=== PATIENT | male | born 1960 | race Hispanic/Latino ===

== ENCOUNTER 2021-03-15 09:17 | Emergency (ER) | payer SELFPAY ==
--- OUTSIDE RECORDS SUMMARY | 2021-03-15 09:19 | XMS REPORT | Continuity of Care Document ---
:1960 Author Organization [facility] t Address [address] [place] [address] Care Team Providers Name Role Phone JET ABDULLAHI Attending Clinician Unavailable JET ABDULLAHI Admitting Clinician Unavailable Problems This patient has no known problems. Allergies, Adverse Reactions, Alerts This patient has no known allergies or adverse reactions. Medications This patient has no known medications. Procedures This patient has no known procedures. Results Test Description Test Time Test Comments Results Result Comments Source Comprehensive Metabolic Panel 2017-01-29 23:55:00 Test Item Value Reference Range Interpretation Comme nts Sodium (test code = NA) 138 mmol/L 135-145 N Potassium (test code = K) 4.5 mmol/L 3.5-5.1 N Chloride (test code = CL) 102 mmol/L 98-105 N Carbon Dioxide (test code = 25 mmol/L 22-29 N CO2) Glucose (test code = GLU) 114 mg/dL 70-115 N Blood Urea Nitrogen (test 16 mg/dL 6-20 N code = BUN) Creatinine (test code = 1.0 mg/dL 0.7-1.2 N CREAT) Calcium (test code = CA) 9.5 mg/dL 8.3-10.5 N Prot Total (test code = TP) 7.0 g/dL 6.4-8.3 N Albumin (test code = ALB) 4.5 g/dL 3.5-5.2 N A/G Ratio (test code = 1.8 Ratio AGRATIO) Globulin (test code = GLOB) 2.5 2.9-3.1 L Bili Total (test code = 0.3 mg/dL 0.1-0.9 N TBIL) Alk Phos (test code = 70 U/L 40-129 N APHOS) AST (test code = AST) 28 U/L 1-40 N ALT (test code = ALT) 55 U/L 1-41 H BUN/Creatinine Ratio (test 16.0 code = BCRATIO) Anion Gap (test code = 11 mmol/L 7-16 N AGAP) Estimated GFR (test code = >60 mL/min/1.73m2 eGFR (estimated Glomerular GFR) Filtration Rate ) is an estimated value ,calculated from the patien t's serum creatinine usin g the MDRD equation.It is NOT the patient's actua l GFR. The eGFR provides a more clinicallyusefu l measure of kidney disease than serum creatinine regina e.This calculation jenny es sex and race into accou nt, if the informationis p rovided. If the race is not provided, and the patient isAfrican-Ameri can, multiply by 1.212. If se x is not provided, and t hepatient is female, multipl y by 0.742. Results for pat ients <18 years ofage hav e not been validated by e MDRD study and should be i nterpretedwith caution.eGFR Re sult Interpretation: eGFR > or = 60 is in the Julia l RangeeGFR < 60 may mean kid jodi diseaseeGFR < 1 5 may mean kidney failure* Ranges recommended by the National Kidney Foundation,http ://nkdep.nih.g ov Lipid [id number] 23:55:00 Test Item Value Reference Range Interpretation Comments Cholesterol (test 184 mg/dL 0-200 N code = CHOL) Triglycerides (test 77 mg/dL 9-200 N code = TRIG) HDL (test code = 47 mg/dL 40-60 N HDL) Chol/HDL (test code 3.9 Ratio 0.0-5.0 N = CHOLPHDL) LDL, Calculated 122 0-130 N (NOTE)RISK O F HEART (test code = LDLC) DISEASEPu blished by [place] Heart AssociationAnal yte Optim al Boderline Increased RiskC HOL <200 200-239 >240TRI G <150 150-199 >200HDL Male: >60 <40HDL Female: >60 <50 LDL < 100 130-15 9 >160 LDL NEAR OPTIMAL IS 100- 129 VLDL (test code = 15 mg/dL 5-40 N VLDL) LDL/HDL (test code = 3 LDLPHDL) CBC with [id number] 22:56:00 Test Item Value Reference Range Interpretation Comments WBC (test code = WBC) 5.8 K/cumm 4.4-10.5 N RBC (test code = RBC) 4.69 M/cumm 4.10-5.70 N Hemoglobin (test code = HGB) 13.9 gm/dL 13.4-17.4 N Hematocrit (test code = HCT) 45.6 % 38.7-52.0 N MCV (test code = MCV) 97.0 fL 80-100 N MCH (test code = MCH) 29.6 pg 27.0-32.5 N MCHC (test code = MCHC) 30.6 g/dL 32.0-37.5 L RDW (test code = RDW) 14.4 % 11.5-14.5 N Platelet Count (test code = 268 K/cumm 140-440 N PLTCT) MPV (test code = MPV) 10.3 fL Diff Method (test code = DIFFM) Auto Neutrophil (test code = NEUT) 60.7 % 36-70 N Lymphocyte (test code = LYMPH) 31.0 % 12-44 N Monocyte (test code = MONO) 6.1 % 0-11 N Eosinophil (test code = EOS) 1.9 % 0-7 N Basophil (test code = BASO) 0.4 % 0-2 N Neutro Abs (test code = ANEUT) 3.5 K/cumm 1.6-7.4 N Lymph Abs (test code = ALYMPH) 1.8 K/cumm 0.5-4.6 N Geary Abs (test code = AMONO) 0.4 K/cumm 0.0-1.2 N Eos Abs (test code = AEOS) 0.11 K/cumm 0.00-0.74 N Baso Abs (test code = ABASO) 0.0 K/cumm 0.00-0.21 N
--- NOTE | 2021-03-15 13:16 | ER ---
Nurse's Notes [facility] Name: Aristeo Seay Age: 61 yrs Sex: Male : 1960 Arrival Date: 03/15/2021 Time: 09:19 Bed DIS1 Private MD: Diagnosis: Acute upper respiratory infection, unspecified Presentation: 03/15 10:20 Chief complaint: Patient states: "I just need a shot for my cough." Recently diagnosed ss with covid. Coronavirus screen: Client presents with at least one sign or symptom that may indicate coronavirus-19. Standard/surgical mask placed on the client. Provider contacted for isolation considerations. Ebola Screen: Patient denies exposure to infectious person. Patient denies travel to an Ebola-affected area in the 21 days before illness onset. Initial Sepsis Screen: Does the patient meet any 2 criteria? No. Patient's initial sepsis screen is negative. Does the patient have a suspected source of infection? No. Patient's initial sepsis screen is negative. Risk Assessment: Do you want to hurt yourself or someone else? Patient reports no desire to harm self or others. Onset of symptoms was February 28, 2021. 10:20 Method Of Arrival: Ambulatory ss 10:20 Acuity: ADELINE 4 ss Historical: - Allergies: 10:23 No Known Allergies; ss - Immunization history:: Adult Immunizations up to date. - Social history:: Smoking status: Patient denies any tobacco usage or history of. Screenin:18 Abuse screen: Denies threats or abuse. Denies injuries from another. Nutritional hb screening: No deficits noted. Tuberculosis screening: No symptoms or risk factors identified. Fall Risk None identified. Assessment: 12:18 General: Appears in no apparent distress. Behavior is calm, cooperative. Pain: Denies hb pain. Neuro: Level of Consciousness is awake, alert, obeys commands, Oriented to person, place, time, situation. Cardiovascular: Patient's skin is warm and dry. Respiratory: Reports cough that is Respiratory effort is even, unlabored, Respiratory pattern is regular, symmetrical. GI: No signs and/or symptoms were reported involving the gastrointestinal system. : No signs and/or symptoms were reported regarding the genitourinary system. EENT: No signs and/or symptoms were reported regarding the EENT system. Derm: Skin is pink, warm \\T\\ dry. Musculoskeletal: No signs and/or symptoms reported regarding the musculoskeletal system. 13:41 Reassessment: Patient appears in no apparent distress at this time. No changes from tr6 previously documented assessment. Patient and/or family updated on plan of care and expected duration. Pain level reassessed. Vital Signs: 10:20 BP 134 / 86; Pulse 79; Resp 16; Temp 98.4(TE); Pulse Ox 98% on R/A; Weight 106.59 kg; ss Height 5 ft. 11 in. (180.34 cm); Pain 0/10; 10:20 Body Mass Index 32.78 (106.59 kg, 180.34 cm) ED Course: 09:19 Patient arrived in ED. mr 10:22 Triage completed. 10:23 Arm band placed on right wrist. 10:25 Jessee Elias PA is PHCP. [facility] 10:25 Jose Pena MD is Attending Physician. [facility] 12:18 Brynn Naranjo, ZHENG is Primary Nurse. hb 13:41 No provider procedures requiring assistance completed. Patient did not have IV access tr6 during this emergency room visit. 13:43 Patient has correct armband on for positive identification. tr6 Administered Medications: 12:01 Drug: Decadron (dexamethasone) 10 mg Route: IM; Site: left deltoid; hb 12:45 Follow up: Response: No adverse reaction hb Outcome: 13:15 Discharge ordered by . [facility] 13:42 Discharged to home ambulatory, with family. tr6 13:42 Condition: improved 13:42 Discharge instructions given to patient, family, significant other, Instructed on discharge instructions, follow up and referral plans. medication usage, Demonstrated understanding of instructions, follow-up care, medications, Prescriptions given X Following a medical screening exam, the patient was provided information regarding alternative care sites and resources available per registration personnel. 13:55 Patient left the ED. tr6 Signatures: Jessee Elias PA PA jmm JosephMarybeth Shelby, RN RN Brynn Naranjo, ZHENG RN Lakshmi Marino RN RN tr6
--- NOTE | 2021-03-15 13:16 | EDPHYS ---
Physician Documentation [facility] Name: Aristeo Seay Age: 61 yrs Sex: Male : 1960 Arrival Date: 03/15/2021 Time: 09:19 Bed DIS1 Private MD: ED Physician Jose Pena HPI: 03/15 11:50 This 61 yrs old Male presents to ER via Ambulatory with complaints of COVID+, jmm Cough. 11:50 The patient or guardian reports cough. Onset: The symptoms/episode began/occurred jmm gradually, 4 day(s) ago. Modifying factors: The symptoms are alleviated by nothing, the symptoms are aggravated by nothing. Associated signs and symptoms: Pertinent negatives: chest pain, diarrhea, vomiting. It is unknown whether or not the patient has had similar symptoms in the past. Patient diagnosed with covid 19 4 days ago. Historical: - Allergies: 10:23 No Known Allergies; ss - Immunization history:: Adult Immunizations up to date. - Social history:: Smoking status: Patient denies any tobacco usage or history of. ROS: 11:50 Constitutional: Positive for body aches. jmm 11:50 Neck: Negative for 11:50 Cardiovascular: Negative for chest pain. 11:50 Respiratory: Positive for cough. 11:50 All other systems are negative. Exam: 11:50 Constitutional: This is a well developed, well nourished patient who is awake, alert, jmm and in no acute distress. Head/Face: atraumatic. Eyes: EOMI, no conjunctival erythema appreciated ENT: Moist Mucus Membranes Neck: Trachea midline, Supple Chest/axilla: Normal chest wall appearance and motion. Cardiovascular: Regular rate and rhythm. No edema appreciated Respiratory: Normal respirations, no respiratory distress appreciated Abdomen/GI: Non distended, soft Back: Normal ROM Skin: General appearance color normal MS/ Extremity: Moves all extremities, no obvious deformities appreciated, no edema noted to the lower extremities Neuro: Awake and alert, normal gait Psych: Behavior is normal, Mood is normal, Patient is cooperative and pleasant Vital Signs: 10:20 BP 134 / 86; Pulse 79; Resp 16; Temp 98.4(TE); Pulse Ox 98% on R/A; Weight 106.59 kg; ss Height 5 ft. 11 in. (180.34 cm); Pain 0/10; 10:20 Body Mass Index 32.78 (106.59 kg, 180.34 cm) MDM: 11:25 Patient medically screened. ace 13:14 Data reviewed: vital signs, nurses notes. Counseling: I had a detailed discussion with ace the patient and/or guardian regarding: the historical points, exam findings, and any diagnostic results supporting the discharge/admit diagnosis, the need for outpatient follow up, to return to the emergency department if symptoms worsen or persist or if there are any questions or concerns that arise at home. ED course: Patient is alert and non toxic in appearance in the ED. No signs of resp distress. Patient is advised to follow up with pcp and otherwise given strict return precautions. patient understood and agrees with the plan of care. . Administered Medications: 12:01 Drug: Decadron (dexamethasone) 10 mg Route: IM; Site: left deltoid; hb 12:45 Follow up: Response: No adverse reaction hb Disposition: 17:20 Co-signature as Attending Physician, Jose Pena MD. rn Disposition: 03/15/21 13:15 Discharged to Home. Impression: Acute upper respiratory infection, unspecified. - Condition is Stable. - Discharge Instructions: COVID-19. - Medication Reconciliation Form, Thank You Letter, Antibiotic Education, Prescription Opioid Use form. - Follow up: Private Physician; When: 2 - 3 days; Reason: Recheck today's complaints, Continuance of care, Re-evaluation by your physician. - Notes: Please take 10,000 IU of Vitamin D a day 1000 MG of NAC (N-Acetyl Cysteine) three times a day 500 MG of Quercetin twice a day 50 MG of Zinc Daily Signatures: Jessee Elias PA PA jmm Nieto, Roman, MD MD rn Smirch, Shelby, RN RN Brynn Naranjo RN RN Lakshmi Marino, ZHENG RN tr6 Corrections: (The following items were deleted from the chart) 13:55 13:15 03/15/2021 13:15 Discharged to Home. Impression: Acute upper respiratory tr6 infection, unspecified. Condition is Stable. Forms are Medication Reconciliation Form, Thank You Letter, Antibiotic Education, Prescription Opioid Use. Follow up: Private Physician; When: 2 - 3 days; Reason: Recheck today's complaints, Continuance of care, Re-evaluation by your physician. ace
[2021-03-15 14:10] VITALS: BP 134/86; TEMP 98.4; O2SAT 98
== END 2021-03-15 13:55 | disposition home or self-care (01) ==
LOC: ER 09:17
DX: J06.9 Acute upper respiratory infection, unspecified (principal); Z86.16 Personal history of COVID-19
CPT/HCPCS: 96372; 99283